=== PATIENT | female | born 1955 | race Caucasian/White ===

== ENCOUNTER 2017-03-27 16:09 | Emergency (ER) | payer BC ==
[~2017-03-27] VITALS: Ht 177.8 cm; Wt 95.5 kg
[~2017-03-27 16:09] MED LIST: ALPH-E400 UNIT PO; ASPIR 8181 M1 PO; ASPIR-LOW81 M1 PO; BEE WITH C1 EACH PO; COMPLETE M9 MG/15 ML PO; FISH OIL SOFTG1 EACH PO; FORTAMET500 M1 PO; LOPRESSOR12.5 MG PO; LOPRESSOR50 MG PO; METFORMIN HCL500 M2 PO; METOPROLOL TART50 MG PO; MILK THISTLE140 MG PO; Milk Of Magnesia,MOM PO; NASONEX17 GM NS; PRAVACHOL20 MG PO; PRILOSEC20 MG PO; PRILOSEC40 MG PO; PRINIVIL20 MG PO; VITAMIN B COMP1 EACH PO; ZESTORETIC,P1 TABLE2 PO
[2017-03-27 16:52] LABS: HEMATOCRIT 40.5 % (36.0-46.0); MCH 31.2 PG (29.0-34.0); MCHC 33.6 G/DL (30.0-36.0); MCV 92.9 FL (83-99); MEAN PLAT.VOLUME 9.4 uM^3 (9.5-12.4); PLATELET COUNT 224 K/uL (156-360); RBC DIS.WIDTH-CV 11.5 % (11.8-14.6); RBC DIS.WIDTH-SD 39.4 % (39-53); RED BLOOD COUNT 4.36 M/uL (3.80-5.20); WHITE BLOOD COUNT 10.4 K/uL (4.1-10.2)
[2017-03-27 17:06] LABS: CHLORIDE 100 mEq/L (99-109); POTASSIUM 4.2 mEq/L (3.7-5.4); SODIUM 137 mEq/L (136-147)
[2017-03-27 17:09] LABS: GLUCOSE 100 mg/dL (70-99)
[2017-03-27 17:10] LABS: ANION GAP 11 MEQ/L (2-14)
[2017-03-27 17:12] LABS: ALKALINE PHOSPHATASE 115 IU/L (3-129); GFR ESTIMATE (CALCULATED) > 59 mL/min/
[2017-03-27 17:13] LABS: UREA NITROGEN (BUN) 13 mg/dL (9-23)
[2017-03-27 18:22] LABS: ADD MIUA? YES; BILIRUBIN NEGATIVE; BLOOD SMALL; COLOR YELLOW ((YELLOW)); GLUCOSE (STRIP) NEGATIVE; KETONES NEGATIVE; LEUKOCYTES NEGATIVE; NITRITE NEGATIVE; PROTEIN (STRIP) NEGATIVE; SPECIFIC GRAVITY 1.008 (1.000-1.030); UROBILINOGEN 0.2 MG/DL (0.2-1.0)
[2017-03-27 18:33] LABS: BACTERIA RARE /HPF; EPITHELIAL CELLS RARE /HPF; MUCUS TRACE /LPF; RED BLOOD CELLS 0-5 /HPF (0-5); UCUL ADDED? NO; WHITE BLOOD CELLS 0-5 /HPF (0-5)
[2017-03-27] MEDS ORDERED: FLAGYL500 MG PO (19:42)
[2017-03-27] MEDS ORDERED: CIPRO500 MG PO (19:42)
[2017-03-27 20:17] VITALS: BP 162/83
== END 2017-03-27 20:26 | disposition home or self-care (01) ==
LOC: EME 16:09
DX: K57.32 Diverticulitis of large intestine without perforation or abscess without bleeding (principal); R10.32 Left lower quadrant pain; I10 Essential (primary) hypertension; E78.5 Hyperlipidemia, unspecified; Z79.82 Long term (current) use of aspirin; Z90.49 Acquired absence of other specified parts of digestive tract; F17.200 Nicotine dependence, unspecified, uncomplicated
CPT/HCPCS: 74177; 80053; 81003; 83605; 85027; 87040; 99281; 99285; J7030